=== PATIENT | female | born 2000 | race Caucasian/White ===

== ENCOUNTER → 2023-02-25 | Outpatient (CLI) | payer BC, SELFPAY ==
[2023-02-25 10:48] LABS: AST(SGOT) 16 U/L (15-37); Alanine Aminotransfer ALT/SGPT 31 U/L (13-56); Cholesterol 150 mg/dL (200); High Density Lipoprotein 52 mg/dL; Triglycerides 132 mg/dL; Very Low Density Lipoprotein 26 mg/dL (5-40)
== END | disposition home or self-care (01) ==
PROVIDERS: PCP Student in an Organized Health Care Education/Training Program; Referring Provider Physician Assistant Medical; Visit Provider Physician Assistant Medical
DX: L70.0 Acne vulgaris (principal); Z79.899 Other long term (current) drug therapy; E28.2 Polycystic ovarian syndrome; N80.9 Endometriosis, unspecified
CPT/HCPCS: 36415; 80061; 84450; 84460

== ENCOUNTER 2023-08-09 10:00 | Day surgery (SDC) | payer BC, SELFPAY ==
[2023-08-09 10:25] LABS: Internal QC Validated? YES +Cl - CLEAR BKGD; Pregnancy, Urine Negative Negative
--- NOTE | 2023-08-09 10:25 | HP.PCM_ITS ---
History and Physical Date of Admission: 08/09/23 ROCK LUKE, is a 23 F who presents to the office today for a follow up. PMH anxiety/depression; endometriosis; enlarged thyroid.? PSH: appendectomy, adenoidectomy, ovarian cyst removal. FH: IBS ? PCP OV 3.11.09 with urgent loose stools with blood and some mucus, abdominal pain and rectal pressure. History of bleeding hemorrhoids which resolve with hemorrhoidal wipes. Current symptoms have been persistent for 6 weeks. ?Biochemical?AST-ALT, triglycerides, lipids WNL.? States the symptoms that she was having in December decreased but still flare back up. States that she will have random bouts of diarrhea with blood, abdominal pain and bloating about every 3 weeks that lasts for a few days. States that she varies between diarrhea and constipation. States that she has very frequent nausea but this is normal for her. States that she has a history of IBS but has never had symptoms like this before. Denies any history of EGD or Colonoscopy. Denies any recent imaging. ROS Const Constitutional: No fatigue, fever(s), frequent falls, headache(s) or weight change ENT ENT: No headache(s) or difficulty swallowing Cardio Cardiology: No leg pain with exertion Gastro GI: Positive for abdominal pain, bloating, diarrhea and Blood in stool; No change in bowel habits, constipation, heartburn, difficulty swallowing, Vomiting blood/hematemesis, nausea/dyspepsia or vomiting Musc Musculoskeletal: No abnormal gait, joint pain, back pain, joint swelling, muscle cramps, muscle weakness, numbness, stiffness, tingling, Arthritis, sciatica, leg pain at night or leg pain with exertion Skin Skin: No dry skin, lesions, itchy eyes or rash Neuro Neurology: No abnormal gait, dizziness, frequent falls, headache(s), numbness, tingling, tremor(s), Increased tone in limbs, paralysis or seizures Psych Psychiatric: No anxiety, No depression, No paranoia, No Behavioral Problems, No Compulsive Behavior, No hyperactivity, No inattentiveness, No obsessions/compulsions, No Temper Tantrums and No suicidal ideation Endo Endocrine: No fatigue or weight change Aller/Imm Allergy/Immunologic: No itchy eyes Giovanni/Lymp Hematologic/Lymphatic: No easy bleeding or easy bruising Exam Const General: cooperative and comfortable Nutritional Appearance: average body habitus and well nourished [facility] Head: normal to inspection Ears: hearing grossly normal bilaterally Nose: external nose normal Face and sinus: normal facial exam Mouth: oral mucosae normal Throat: posterior oropharynx normal Eyes General: appearance normal, both eyes and all related structures Neck Neck: normal visual inspection Chest Chest palpation & inspection: normal inspection of the chest and normal palpation of entire chest wall Resp Effort & Inspection: normal respiratory effort Auscultation: Bilateral: Clear to Auscultation Cardio Palpation: normal PMI Rate: regular rate Rhythm: regular rhythm GI Inspection: normal to inspection Auscultation: normal bowel sounds Percussion: normal to percussion Palpation: no hepatosplenomegaly Skin General: no rashes or lesions noted Neuro General: patient alert Extrem General: normal to inspection Psych Affect: normal affect Quality Reporting Tobacco Screening ([facility] 138) Smoking Status: Never smoker Assessment and Plan Assessment and Plan (1) Change in bowel habits: Status: Acute (2) Abdominal pain: Status: Acute Plan 23-year-old with intermittent epigastric pain that is nonradiating. She is not sure if it is associated with foods. It is associated with menstrual cycle. Her weight has been stable. She does not have any fever, rash or B symptoms. She does see some blood in her stool after having an episode of cramping and bloating.. The differential diagnosis does include celiac disease, inflammatory bowel disease, microscopic colitis, collagenous colitis, peptic ulcer disease, H. pylori associated gastritis. She will undergo upper and lower endoscopy and also biochemical testing and stool testing. She was explained alternatives, risk, benefits including understanding bleeding, infection, sepsis, perforation, need for surgery . Shortness of 20. I have examined the patient and the H&P has been reviewed. There are no clinical changes since date of exam.
[2023-08-09 10:30] VITALS: BP 131/85; PULSE 85; RESP 16; TEMP 36.4; O2SAT 100; BMI 30.7
[2023-08-09] MEDS: Lactated Ringers 1,000 ML 15 ML IV (10:30)
--- NOTE | 2023-08-09 11:00 | EGD_PTH ---
PATIENT: ROCK MERAZ LOC: EN U#:[id number] AGE/SX: 23 ROOM: RE08/09/[address]: Dr. Bethel Ramos DO : 2000 BED: DIS: 08/09/2023 SPEC #: [id number] RECD: 08/09/23 14:26 STATUS: GINETTE RESilke #: [id number] ESTELA: 08/09/23 11:[address]: Bethel Ramos DEPT: SURGICAL PATHOLOGY RECD BY: Daniella Garza ENTERED: 08/10/23 08:43 SP TYPE: EGD BIOPSY OT DR: Dr. Julio Beltran DO Tissues: A - Duodenum, NOS B - Gastric mucous membrane C - Esophagus, NOS D - Ileum, NOS E - COLON BIOPSY Procedures: Special Stain Group II Surgery Specimen Level IV Alcian Blue/PAS (control) HEADER OPERATION: Colonoscopy with biopsies, EGD with biopsies PRE-OP DIAGNOSIS: Change in bowel habits, abdominal pain TISSUE SUBMITTED: A - Duodenum biopsy, B - Gastric body biopsy, C - Distal esophagus biopsy, D - Terminal ileum biopsy, E - Random colon biopsy MICROSCOPIC DIAGNOSIS A. Duodenum, biopsy: No pathologic change. B. Gastric body, biopsy: Chronic gastritis. See comment. C. Distal esophagus, biopsy: Gastroesophageal junctional mucosa with chronic inflammation. Focal changes of reflux. No evidence of goblet cell metaplasia. See comment. D. Terminal ileum, biopsy: No pathologic change. E. Colon, random biopsy: No pathologic change. AM:stevie 08/11/2023 COMMENT B. The results of immunohistochemistry for Helicobacter pylori will be reported separately ([id number]). C. Alcian blue/PAS stain with matched control supports the above diagnosis. MICROSCOPIC DESCRIPTION Slides are reviewed. GROSS DESCRIPTION A - Received in fixative is one container labeled with the patient's name and designated duodenum biopsy. The specimen consists of multiple irregular fragments of light champagne soft tissue that in aggregate measure 1.0 x 0.4 x 0.1 cm. The specimen is totally submitted in one cassette. B - Received in fixative is one container labeled with the patient's name and designated gastric body biopsy. The specimen consists of one irregular fragment of light champagne soft tissue that measures 0.4 x 0.2 x 0.1 cm. The specimen is totally submitted in one cassette. C - Received in fixative is one container labeled with the patient's name and designated distal esophagus biopsy. The specimen consists of multiple irregular fragments of light champagne soft tissue that in aggregate measure 0.6 x 0.2 x 0.1 cm. The specimen is totally submitted in one cassette. D - Received in fixative is one container labeled with the patient's name and designated terminal ileum biopsy. The specimen consists of multiple irregular fragments of light champagne soft tissue that in aggregate measure 1.0 x 0.5 x 0.1 cm. The specimen is totally submitted in one cassette. E - Received in fixative is one container labeled with the patient's name and designated random colon biopsy. The specimen consists of multiple irregular fragments of light champagne soft tissue that in aggregate measure 2.5 x 0.5 x 0.1 cm. The specimen is totally submitted in one cassette. / SJ:rg 08/10/2023 TC:3 CPT: 66224 x5, 97192
--- NOTE | 2023-08-09 11:00 | IMM_PTH ---
PATIENT: ROCK MERAZ LOC: EN U#:[id number] AGE/SX: ROOM: RE08/09/[address]: Dr. Bethel Ramos DO : 2000 BED: DIS: 08/09/2023 SPEC #: [id number] RECD: 08/10/23 13:23 STATUS: GINETTE REQ #: [id number] ESTELA: 08/09/23 11:[address]: Bethel Ramos DEPT: IMMUNOHISTOCHEMISTRY RECD BY: Mariela Juan ENTERED: 08/10/23 13:23 SP TYPE: IMMUNO OTHR DR: Dr. Julio Beltran DO Tissues: B - Stomach, NOS Procedures: H Pylori (initial) PHYSICIAN & INSTITUTION [place] [id number] SPECIMEN INFORMATION: Tissue Source: B - Gastric body Clinical Info: Change in bowel habits, abdominal pain Specimen Number: [id number] CPT code: 56612 METHODOLOGY: Deparaffinized sections of prefer/formalin-fixed tissue or PAP/DQ stained slides are incubated with monoclonal/polyclonal antibodies/oligonucleotide probes. Localization is made via biotin free immunoperoxidase method. Appropriate controls are performed and reacted as expected. Results on target cell population are indicated in the following table: RESULTS: ANTIBODY / CLONE RESULT Block B H Pylori (polyclonal) negative These tests were developed and their performance characteristics determined by [facility]. They may not have been cleared or approved by the U.S. Food and Drug Administration. The FDA has determined that such clearance or approval is not necessary. The above immunohistochemical/dualISH markers are ordered and reviewed by the Pathologist. INTERPRETATION: B. Gastric body, biopsy: Negative for Helicobacter pylori organisms. AM:stevie 08/11/2023
[2023-08-09 11:30] VITALS: BP 131/85; BP 158/65; PULSE 97; RESP 19; TEMP 36.2; O2SAT 96
--- NOTE | 2023-08-09 11:34 | OP.EGD_ITS ---
Patient Name: Gómez Hardwick Procedure Date: 08/09/2023 11:00 AM Date of : 2000 Age: 23 Procedure: Upper GI endoscopy Indications: Epigastric abdominal pain, Functional Dyspepsia Providers: Bethel Ramos DO Referring MD: Julio Beltran Do Medicines: Monitored Anesthesia Care Patient Profile: This is a 23 year old female. Refer to note in patient chart for documentation of history and physical. Patient has symptoms of chronic abdominal cramping and chronic epigastric abdominal pain. Complications: No immediate complications. Procedure: Pre-Anesthesia Assessment: - Prior to the procedure, a History and Physical was performed, and patient medications and allergies were reviewed. The patient is competent. The risks and benefits of the procedure and the sedation options and risks were discussed with the patient. All questions were answered and informed consent was obtained. Patient identification and proposed procedure were verified by the physician in the pre-procedure area. Mental Status Examination: alert and oriented. Airway Examination: normal oropharyngeal airway and neck mobility. Respiratory Examination: clear to auscultation. CV Examination: normal. Prophylactic Antibiotics: The patient does not require prophylactic antibiotics. Prior Anticoagulants: The patient has taken no anticoagulant or antiplatelet agents. ASA Grade Assessment: II - A patient with mild systemic disease. After reviewing the risks and benefits, the patient was deemed in satisfactory condition to undergo the procedure. The anesthesia plan was to use monitored anesthesia care (MAC). Immediately prior to administration of medications, the patient was re-assessed for adequacy to receive sedatives. The heart rate, respiratory rate, oxygen saturations, blood pressure, adequacy of pulmonary ventilation, and response to care were monitored throughout the procedure. The physical status of the patient was re-assessed after the procedure. After obtaining informed consent, the endoscope was passed under direct vision. Throughout the procedure, the patient's blood pressure, pulse, and oxygen saturations were monitored continuously. The Colonoscope was introduced through the mouth, and advanced to the second part of duodenum. The upper GI endoscopy was accomplished without difficulty. The patient tolerated the procedure well. Scope In: 11:08:34 AM Scope Out: 11:13:11 AM Total Procedure Duration Time 0 hours 4 minutes 37 seconds Findings: LA Grade A (one or more mucosal breaks less than 5 mm, not extending between tops of 2 mucosal folds) esophagitis with no bleeding was found 37 to 38 cm from the incisors. Biopsies were taken with a cold forceps for histology. Verification of patient identification for the specimen was done. Estimated blood loss was minimal. Patchy mildly erythematous mucosa without bleeding was found in the gastric body. Biopsies were taken with a cold forceps for histology. Verification of patient identification for the specimen was done. Estimated blood loss was minimal. No gross lesions were noted in the duodenal bulb, in the first portion of the duodenum and in the second portion of the duodenum. Biopsies were taken with a cold forceps for histology. Verification of patient identification for the specimen was done. Estimated blood loss was minimal. Impression: - LA Grade A reflux esophagitis with no bleeding. Biopsied. - Erythematous mucosa in the gastric body. Biopsied. - No gross lesions in the duodenal bulb, in the first portion of the duodenum and in the second portion of the duodenum. Biopsied. Recommendation: - Discharge patient to home. - Resume previous diet. - Continue present medications. - Await pathology results. Procedure Code(s): --- Professional --- 03490, Esophagogastroduodenoscopy, flexible, transoral; with biopsy, single or multiple CPT copyright 2021 [employer]. All rights reserved. The codes documented in this report are preliminary and upon professor of kinesiology review may be revised to meet current compliance requirements. Bethel Ramos DO 08/09/2023 11:33:32 AM This report has been signed electronically. Number of Addenda: 0 Note Initiated On: 08/09/2023 11:00 AM
--- NOTE | 2023-08-09 11:34 | OP.CCLET_ITS ---
08/09/2023 Julio Beltran Do Re : Upper GI endoscopy procedure for Gómez Hardwick Dear Devin This procedure was performed on Wednesday, August 09, 2023. My impressions and recommendations are as follows: Impressions : - LA Grade A reflux esophagitis with no bleeding. Biopsied. - Erythematous mucosa in the gastric body. Biopsied. - No gross lesions in the duodenal bulb, in the first portion of the duodenum and in the second portion of the duodenum. Biopsied. Recommendations : - Discharge patient to home. - Resume previous diet. - Continue present medications. - Await pathology results. My findings are described in the full procedure note, which is enclosed. If I can be of further assistance, please feel free to contact me at . Sincerely, Bethel Ramos DO 08/09/2023 11:33:32 AM This report has been signed electronically.
[2023-08-09 11:35] VITALS: BP 124/100; BP 131/85; PULSE 103; RESP 16; O2SAT 96
--- NOTE | 2023-08-09 11:37 | OP.COLON_ITS ---
Patient Name: Gómez Hardwick Procedure Date: 08/09/2023 11:13 AM Date of : 2000 Age: 23 Procedure: Colonoscopy Indications: Clinically significant diarrhea of unexplained origin Providers: Bethel Ramos DO Referring MD: Julio Beltran Do Medicines: Monitored Anesthesia Care Patient Profile: This is a 23 year old female. Refer to note in patient chart for documentation of history and physical. Patient has symptoms of chronic abdominal cramping and chronic epigastric abdominal pain. Last Colonoscopy: none. The patient's first colonoscopy is today. Complications: No immediate complications. Procedure: Pre-Anesthesia Assessment: - Prior to the procedure, a History and Physical was performed, and patient medications and allergies were reviewed. The patient is competent. The risks and benefits of the procedure and the sedation options and risks were discussed with the patient. All questions were answered and informed consent was obtained. Patient identification and proposed procedure were verified by the physician in the pre-procedure area. Mental Status Examination: alert and oriented. Airway Examination: normal oropharyngeal airway and neck mobility. Respiratory Examination: clear to auscultation. CV Examination: normal. Prophylactic Antibiotics: The patient does not require prophylactic antibiotics. Prior Anticoagulants: The patient has taken no anticoagulant or antiplatelet agents. ASA Grade Assessment: II - A patient with mild systemic disease. After reviewing the risks and benefits, the patient was deemed in satisfactory condition to undergo the procedure. The anesthesia plan was to use monitored anesthesia care (MAC). Immediately prior to administration of medications, the patient was re-assessed for adequacy to receive sedatives. The heart rate, respiratory rate, oxygen saturations, blood pressure, adequacy of pulmonary ventilation, and response to care were monitored throughout the procedure. The physical status of the patient was re-assessed after the procedure. After I obtained informed consent, the scope was passed under direct vision. Throughout the procedure, the patient's blood pressure, pulse, and oxygen saturations were monitored continuously. The Colonoscope was introduced through the anus and advanced to the terminal ileum. The colonoscopy was performed without difficulty. The patient tolerated the procedure well. The quality of the bowel preparation was adequate. The terminal ileum, ileocecal valve, appendiceal orifice, and rectum were photographed. Scope In: 11:15:20 AM Scope Withdrawal Time 0 hours 8 minutes 12 seconds Scope Out: 11:27:00 AM Total Procedure Duration Time 0 hours 11 minutes 40 seconds Findings: The perianal and digital rectal examinations were normal. The recto-sigmoid colon was moderately tortuous. An area of mildly congested mucosa was found in the ascending colon. Biopsies for histology were taken with a cold forceps from the entire colon for evaluation of microscopic colitis. Verification of patient identification for the specimen was done. Estimated blood loss was minimal. The terminal ileum appeared normal. Biopsies were taken with a cold forceps for histology. Verification of patient identification for the specimen was done. Estimated blood loss was minimal. Impression: - Tortuous colon. - Congested mucosa in the ascending colon. Biopsied. - The examined portion of the ileum was normal. Biopsied. Recommendation: - Discharge patient to home. - Resume previous diet. - Continue present medications. - Await pathology results. - Repeat colonoscopy (date not yet determined) for surveillance based on pathology results. Procedure Code(s): --- Professional --- 41960, Colonoscopy, flexible; with biopsy, single or multiple CPT copyright 2021 [employer] [place] [employer]. All rights reserved. The codes documented in this report are preliminary and upon icd 9 coder review may be revised to meet current compliance requirements. Bethel Ramos DO 08/09/2023 11:37:17 AM This report has been signed electronically. Number of Addenda: 0 Note Initiated On: 08/09/2023 11:13 AM
--- NOTE | 2023-08-09 11:37 | OP.CCLET_ITS ---
08/09/2023 Julio Beltran Do Re : Colonoscopy procedure for Gómez Hardwick Dear Devin This procedure was performed on Wednesday, August 09, 2023. My impressions and recommendations are as follows: Impressions : - Tortuous colon. - Congested mucosa in the ascending colon. Biopsied. - The examined portion of the ileum was normal. Biopsied. Recommendations : - Discharge patient to home. - Resume previous diet. - Continue present medications. - Await pathology results. - Repeat colonoscopy (date not yet determined) for surveillance based on pathology results. My findings are described in the full procedure note, which is enclosed. If I can be of further assistance, please feel free to contact me at . Sincerely, Bethel Ramos DO 08/09/2023 11:37:17 AM This report has been signed electronically.
[2023-08-09 11:40] VITALS: BP 100/66; BP 131/85; PULSE 95; RESP 18; O2SAT 98
[2023-08-09 11:45] VITALS: BP 103/64; BP 131/85; PULSE 95; RESP 18; TEMP 36.7; O2SAT 98
[2023-08-09 12:00] VITALS: BP 131/85
== END 2023-08-09 12:09 | disposition home or self-care (01) ==
LOC: EN 10:03 → AC 10:03
PROVIDERS: Anesthesiology; PCP Student in an Organized Health Care Education/Training Program; Referring Provider Student in an Organized Health Care Education/Training Program; Visit Provider Internal Medicine Gastroenterology
PROC: 0DJD8ZZ Inspection of Lower Intestinal Tract, Via Natural or Artificial Opening Endoscopic (ICD-10-PCS; CPT 45378; principal; 2023-08-09 10:55)
DX: K29.50 Unspecified chronic gastritis without bleeding (principal); R19.7 Diarrhea, unspecified; K21.00 Gastro-esophageal reflux disease with esophagitis, without bleeding; K63.89 Other specified diseases of intestine; K30 Functional dyspepsia
CPT/HCPCS: 45380; 43239; 81025; 88305; 88313; 88342; J7120; J2405

== ENCOUNTER → 2023-09-28 | Outpatient (CLI) | payer BC, SELFPAY ==
[2023-09-28 13:00] LABS: Absolute Lymphocyte Count 2.69 X10^3/uL (0.83-4.51); Absolute Neutrophil Count 3.7 X10^3/uL (2.0-7.7); Basophil# 0.03 X10^3/uL; Basophil% 0.4 % (0-1); Eosinophil# 0.06 X10^3/uL; Eosinophils% 0.9 % (0-5); Hematocrit 44.5 % (37-47); Hemoglobin 14.8 g/dL (12.0-15.0); Lymphocyte # 2.69 X10^3/ul (0.83-4.51); Lymphocyte % 38.9 % (19-41); Mean Corp Hgb Conc 33.3 g/dL (32-36); Mean Corpuscular Hgb 29.5 pg (27.0-32.0); Mean Corpuscular Volume 88.8 fL (81-99); Monocyte# 0.42 X10^3/uL; Monocyte% 6.1 % (0-10); NRBC Flagged by Analyzer 0 % (0-5); Neutrophil % 53.4 % (47-70); Platelet Count 272 K/mm3 (150-450); RET-HE 35.2 pg (30-35); Red Blood Count 5.01 M/mm3 (4.2-5.4); Reticulocyte Count 1.41 % (0.5-1.5); White Blood Count 6.9 K/mm3 (4.4-11.0)
[2023-09-28 13:24] LABS: Erythrocyte Sedimentation Rate 2 mm/hr (0-30)
[2023-09-28 13:27] LABS: Amylase 61 U/L (25-115); CRP < 2.90 mg/L (0.0-3.0); Ferritin 40 ng/mL (8-252); Iron 100 ug/dL (50-170); Iron Binding Capacity,Total 359 ug/dL (250-450); LDH 188 U/L (84-246); Lipase 55 U/L (13-75)
[2023-10-02 06:09] LABS: Alpha-1-Globulins 0.2 g/dL (0.0-0.4); Alpha-2-Globulins 0.7 g/dL (0.4-1.0); CMV Acute Antibody IgM < 30.0 AU/mL (0.0-29.9); Ceruloplasmin 27.2 mg/dL (19.0-39.0); Cytoplasmic Ab (C-ANCA) <1:20 titer (Neg:<1:20); EBV Acute VCA IgM < 36.0 U/mL (0.0-35.9); EBV-VCA IgG > 600.0 U/mL (0.0-17.9); Endomysial Antibody IgA Negative (Negative); Gamma Globulin 1.5 g/dL (0.4-1.8); Immunoglobulin A 213 mg/dL (87-352); Immunoglobulin E 43 IU/mL (6-495); Immunoglobulin G 1578 mg/dL (586-1602); Immunoglobulin M 70 mg/dL (26-217); PROEL- TOTAL PROTEIN 7.4 g/dL (6.0-8.5); Perinuclear Ab (P-ANCA) <1:20 titer (Neg:<1:20); QNTFERON TB Mitogen Value > 10.00 IU/mL (.); QNTFERON TB Nil Value 0 IU/mL (.); QNTFERON TB1+ Ag Value 0.02 IU/mL (.); QNTFERON TB2+ Ag Value 0.06 IU/mL (.); QNTIFERON TB Positive Criteria Negative (Negative); t-Transglutaminase IgA <2 U/mL (0-3)
[2023-10-02 13:08] LABS: Anti-Centromere B Ab <0.2 AI (0.0-0.9); Anti-Chromatin <0.2 AI (0.0-0.9); Anti-Jo <0.2 AI (0.0-0.9); Anti-Scleroderma-70 AB <0.2 AI (0.0-0.9); Anti-dsDNA Ab 10 IU/mL (0-9); Clam <0.10 kU/L (Class 0); Codfish <0.10 kU/L (Class 0); Corn <0.10 kU/L (Class 0); Egg, White <0.10 kU/L (Class 0); Milk (Cow) <0.10 kU/L (Class 0); Peanut <0.10 kU/L (Class 0); RNP Ab <0.2 AI (0.0-0.9); SCALLOP <0.10 kU/L (Class 0); SESAME SEED <0.10 kU/L (Class 0); SJOGREN'S Anti-SS-A test 1.2 AI (0.0-0.9); SJOGREN'S Anti-SS-B test < 0.2 AI (0.0-0.9); Shrimp <0.10 kU/L (Class 0); Smith Ab <0.2 AI (0.0-0.9); Soybean <0.10 kU/L (Class 0); Walnut, (Food) <0.10 kU/L (Class 0); Wheat <0.10 kU/L (Class 0)
== END | disposition home or self-care (01) ==
LOC: LAB 12:27
PROVIDERS: PCP Student in an Organized Health Care Education/Training Program; Referring Provider Internal Medicine Gastroenterology; Visit Provider Internal Medicine Gastroenterology
DX: R19.4 Change in bowel habit (principal); R10.9 Unspecified abdominal pain
CPT/HCPCS: 36415; 82150; 82390; 82728; 82784; 82785; 83516; 83540; 83550; 83615; 83690; 84165; 85025; 85045; 85652; 86003; 86140; 86225; 86235; 86255; 86256; 86334; 86480; 86645; 86664; 86665

== ENCOUNTER 2024-05-28 16:01 | Outpatient (CLI) | payer BC, SELFPAY ==
[2024-05-28] VITALS (8 sets, daily range): BP systolic 116–123; BP diastolic 76–88; PULSE 71–97; RESP 18; TEMP 36.2; O2SAT 99; BMI 38.0
[2024-05-28 16:26] LABS: Hematocrit 36.6 % (37-47); Hemoglobin 12.1 g/dL (12.0-15.0); Mean Corp Hgb Conc 33.1 g/dL (32-36); Mean Corpuscular Hgb 28.2 pg (27.0-32.0); Mean Corpuscular Volume 85.3 fL (81-99); Mean Platelet Vol. 10.5 fl (6.2-12.0); Platelet Count 264 K/mm3 (150-450); RBC Distribution Width CV 13.1 % (11.6-14.6); RBC Distribution Width SD 40.1 fl (35.1-43.9); Red Blood Count 4.29 M/mm3 (4.2-5.4); White Blood Count 8.7 K/mm3 (4.4-11.0)
[2024-05-28 16:39] LABS: Protein:Creat Ratio 239 mg/g CRE (0-200)
[2024-05-28 16:40] LABS: AST(SGOT) 18 U/L (15-37); Alanine Aminotransfer ALT/SGPT 16 U/L (13-56); Creatinine, Serum 0.57 mg/dL (0.55-1.02); EST Glomerular Filtration Rate 139 mL/min (>60); Est Glom Filt Rate - Afr Amer 168 mL/min (>60); Estimated Creatinine Clearance 194.72 ml/min; Uric Acid 4.2 mg/dL (2.6-6.0)
[2024-05-28] MEDS: DiphenhydrAMINE 25 MG Capsule PO (17:09)
[2024-05-28] MEDS: Acetaminophen 500 MG Tablet 1000 MG PO (17:09)
[2024-05-28] MEDS: Metoclopramide 10 MG Tablet PO (17:09)
--- NOTE | 2024-05-28 21:06 | OB.TRI.NOTE ---
HPI - General General Date of Service: 05/28/24 Chief Complaint: headache HPI Narrative ROCK LUKE, is a 24 F who presents with a headache and concern for pre E. Maternal Data Information Final MOOKIE: 06/26/24 Gestational age: 35 weeks [facility] Medical History (Updated 05/28/24 @ 21:[address] Renetta Farmer MD) Wears glasses Wears contact lenses Anxiety Injury of head and neck Non-smoker Enlarged thyroid Scoliosis of lumbar spine Recurrent headache Endometriosis, pelvic peritoneum Depression Cystic acne vulgaris Chronic anxiety Abdominal pain Change in bowel habits Hemorrhage of anus and rectum Home Medications ?Medication ?Instructions ?Recorded ?Last Taken ?Type sertraline 50 mg tablet 50 mg PO DAILY anxiety 02/09/23 05/27/24 22:00 History multivitamin (Daily Multi-Vitamin 1 tab PO DAILY 08/03/23 05/27/24 22:00 History tablet) famotidine 40 mg tablet 20 mg PO DAILY heartburn 05/28/24 05/27/24 22:00 History magnesium 200 mg tablet 400 mg PO DAILY 05/28/24 05/27/24 22:00 History ursodiol 300 mg capsule 300 mg PO BID 05/28/24 05/28/24 09:00 History Allergy/AdvReac Type Severity Reaction Status Date / Time No Known Allergies Allergy Verified 05/28/24 16:12 Family History (Updated 02/09/23 @ 10:47 by Elisha Soriano) Mother IBS (irritable bowel syndrome) PCOS (polycystic ovarian syndrome) Sister IBS (irritable bowel syndrome) Surgical History History of ovarian cystectomy History of adenoidectomy History of appendectomy Social History (Updated 02/09/23 @ 10:47 by Elisha Soriano) Smoking Status: Never smoker alcohol intake: current alcohol intake frequency: a few times a week Alcohol type: wine NST FHR Rate Baby A Baseline: 130 Variability:: Moderate Accelerations:: 15 x 15 Decelerations:: None NST Reactive:: Yes FHR Category:: Category I Uterine Activity:: quiet Assessment & Plan (1) Headache in : QUALIFIERS: Trimester: third trimester Qualified Code(s): O26.893 - Other specified related conditions, third trimester; R51.9 - Headache, unspecified (2) 35 weeks gestation of : PLAN: Plan Headache resolved with reglan and benadryl. Pre E labs normal
== END 2024-05-28 17:56 | disposition home or self-care (01) ==
LOC: WPOUT 16:03 → WP 16:04
PROVIDERS: PCP Student in an Organized Health Care Education/Training Program; Referring Provider Obstetrics & Gynecology; Visit Provider Obstetrics & Gynecology
DX: O26.893 Other specified pregnancy related conditions, third trimester (principal); O99.343 Other mental disorders complicating pregnancy, third trimester; F41.9 Anxiety disorder, unspecified; Z3A.35 35 weeks gestation of pregnancy; F32.A Depression, unspecified; Z79.899 Other long term (current) drug therapy; R51.9 Headache, unspecified
CPT/HCPCS: 36415; 59025; 59050; 82565; 82570; 84156; 84450; 84460; 84550; 85027; 99221; G0378

== ENCOUNTER 2024-06-07 19:26 | Inpatient (IN) | payer BC, SELFPAY ==
[2024-06-07] VITALS (7 sets, daily range): BP systolic 128–145; BP diastolic 78–85; PULSE 65–93; RESP 16; TEMP 36.2–36.5; O2SAT 99; BMI 39.2
[2024-06-07] MEDS: Lactated Ringers 1,000 ML 50 ML IV (19:50)
[2024-06-07] MEDS: 0.9% Normal Saline Single 100 ML IV.SOLN. INTRA-UTER (20:10)
--- NOTE | 2024-06-07 20:17 | HP.PCM.OB_ITS ---
HPI - General General Date of Admission: 06/07/24 HPI Narrative ROCK MERAZ, is a 24 F @ 37 weeks who presents for IOL due to Cholestasis [facility] Medical History (Updated 06/07/24 @ 20:[address] Joanna Beckett MD) Wears glasses Wears contact lenses Anxiety Injury of head and neck Non-smoker Enlarged thyroid Scoliosis of lumbar spine Recurrent headache Endometriosis, pelvic peritoneum Depression Cystic acne vulgaris Chronic anxiety Abdominal pain Change in bowel habits Hemorrhage of anus and rectum Home Medications ?Medication ?Instructions ?Recorded ?Last Taken ?Type sertraline 50 mg tablet 50 mg PO DAILY anxiety 02/09/23 05/27/24 22:00 History multivitamin (Daily Multi-Vitamin 1 tab PO DAILY 08/03/23 05/27/24 22:00 History tablet) famotidine 40 mg tablet 20 mg PO DAILY heartburn 05/28/24 05/27/24 22:00 History magnesium 200 mg tablet 400 mg PO DAILY 05/28/24 05/27/24 22:00 History ursodiol 300 mg capsule 300 mg PO BID 05/28/24 05/28/24 09:00 History Allergy/AdvReac Type Severity Reaction Status Date / Time No Known Allergies Allergy Verified 06/07/24 20:15 Family History (Updated 02/09/23 @ 10:47 by Elisha Soriano) Mother IBS (irritable bowel syndrome) PCOS (polycystic ovarian syndrome) Sister IBS (irritable bowel syndrome) Surgical History History of ovarian cystectomy History of adenoidectomy History of appendectomy Social History (Updated 02/09/23 @ 10:47 by Elisha Soriano) Smoking Status: Never smoker alcohol intake: current alcohol intake frequency: a few times a week Alcohol type: wine NST FHR Rate Baby A Baseline: 140 Variability:: Moderate Accelerations:: 15 x 15 Decelerations:: None NST Reactive:: Yes FHR Category:: Category I Uterine Activity:: no ctx Vital Signs Vital Signs Vital Signs: 06/07/24 19:36 06/07/24 19:36 06/07/24 19:37 Temperature Temperature Source Pulse Rate 93 Respiratory Rate Blood Pressure 128/78 H BP Systolic 128 BP Diastolic 78 Pulse Ox 99 06/07/24 19:37 06/07/24 19:37 06/07/24 19:37 Temperature Temperature Source Temporal Pulse Rate 88 Respiratory Rate 16 Blood Pressure BP Systolic BP Diastolic Pulse Ox 06/07/24 19:37 Temperature 97.6 F L Temperature Source Pulse Rate Respiratory Rate Blood Pressure BP Systolic BP Diastolic Pulse Ox Physical Exam Narrative prior to my vaginal exam small amount of blood noted- pt reports felt small leaking after exam from RN- no other fluid noted on pad- will continue to monitor for LOF VE: 10/22/49/-3, transcervical merlos placed without difficulty Const alert and oriented x3 General Appearance: cooperative HEENT normocephalic GI GI Narrative: Gravid, non tender to palpation. OB / External & Speculum: external exam normal Extremity normal to inspection Skin no rashes or lesions noted Neuro oriented x3 and CN's II-XII intact bilaterally Psych Appearance: grossly normal Labs Labs Labs: Antibody Screen Pending Hct 34.8 % (37-47) L Hgb 11.5 g/dL (12.0-15.0) L Syphilis Total Ab Pending Assessment & Plan (1) Cholestasis during in third trimester: (2) 37 weeks gestation of : (3) Obesity affecting in third trimester: QUALIFIERS: Obesity type affecting : other obesity Qualified Code(s): O99.213 - Obesity complicating , third trimester; E66.8 - Other obesity PLAN: Plan Admit to L&D [facility] FHR/TOCO Epidural if requested for pain Monitor VS Anticipate transcervical merlos/cytotec
[2024-06-07 20:20] LABS: Absolute Lymphocyte Count 2.13 X10^3/uL (0.83-4.51); Basophil# 0.04 X10^3/uL; Basophil% 0.4 % (0-1); Eosinophil# 0.11 X10^3/uL; Eosinophils% 1.1 % (0-5); Hematocrit 34.8 % (37-47); Hemoglobin 11.5 g/dL (12.0-15.0); Lymphocyte # 2.13 X10^3/ul (0.83-4.51); Mean Corpuscular Hgb 28.3 pg (27.0-32.0); Mean Corpuscular Volume 85.7 fL (81-99); Mean Platelet Vol. 10.8 fl (6.2-12.0); Monocyte# 0.83 X10^3/uL; Monocyte% 8.2 % (0-10); NRBC Flagged by Analyzer 0 % (0-5); Neutrophil # 6.97 X10^3/uL (2.7-7.7); Neutrophil % 68.8 % (47-70); Platelet Count 261 K/mm3 (150-450); RBC Distribution Width SD 40.1 fl (35.1-43.9); Red Blood Count 4.06 M/mm3 (4.2-5.4); White Blood Count 10.1 K/mm3 (4.4-11.0)
[2024-06-07] MEDS: miSOPROStol 25 MCG TABLET PO (20:40)
[2024-06-07 20:52] LABS: Syphilis Antibodies Non-reactive
[2024-06-08] VITALS (55 sets, daily range): BP systolic 75–159; BP diastolic 40–95; PULSE 51–130; RESP 15–20; TEMP 36.1–37; O2SAT 81–100
[2024-06-08] MEDS: Oxytocin 15 Units/NS 250ml 15 UNITS/250 ML IV.SOLN 2 UNITS IV (00:49)
[2024-06-08] MEDS: Mag /Aluminum/Simeth WCH UDC 30 ML ORAL.SUSP PO (00:51)
--- NOTE | 2024-06-08 07:54 | PCM.PN.CNM ---
Subjective Subjective Patient seen at bedside. Starting to feel contractions. Rating pain 4-5/10. Planning on epidural for pain control. Objective Data Objective Data Vital Signs: Vital Signs Temp Pulse Resp BP Pulse Ox 97.6 F L 71 16 117/70 98 06/08/24 07:14 06/08/24 07:14 06/08/24 07:14 06/08/24 07:14 06/08/24 07:13 Weight: 250 lb 3.2 oz Body Mass Index (BMI) 39.2 Intake & Output: Intake and Output for Last 24 Hours 06/06/24 06/07/24 06/08/24 23:59 23:59 23:59 Intake Total 49.53 / 49.53 Output Total 500 / 500 Balance -450.47 / -450.47 Lab / Micro Data 06/07/24 19:50 Labs: Laboratory Results - last 24 hr 06/07/24 19:50: WBC 10.1, RBC 4.06 L, Hgb 11.5 L, Hct 34.8 L, MCV 85.7, MCH 28.3, MCHC 33.0, RDW Std Deviation 40.1, RDW Coeff of Leona 13.0, Plt Count 261, MPV 10.8, Immature Gran % (Auto) 0.500, Neut % (Auto) 68.8, Lymph % (Auto) 21.0, [place] % (Auto) 8.2, Eos % (Auto) 1.1, Baso % (Auto) 0.4, Absolute Neuts (auto) 7.0, Absolute Lymphs (auto) 2.13, Nucleated RBC % 0, Syphilis Total Ab Non-reactive, Blood Type O POSITIVE, Antibody Screen NEGATIVE Physical Exam Const alert and no apparent distress General Appearance: cooperative and comfortable Exam Limitations: no limitations HEENT normocephalic Eyes General Eye: normal appearance of both eyes Neck full ROM General: normal visual inspection Chest Chest: symmetrical chest wall rise Resp normal respiratory effort and normal air movement Effort and Inspection: symmetric chest movement Auscultation: clear to auscultation bilaterally Cardio regular rate and regular rhythm GI normal to inspection, nondistended, normoactive bowel sounds Back/Spine normal ROM Extremity full ROM and no calf tenderness General Extremity: normal exam except as noted Skin no rashes or lesions noted Neuro oriented x3 Speech: speech normal Psych mental status grossly normal Thought Process: normal thought process Assessment & Plan (1) Obesity affecting in third trimester: QUALIFIERS: Obesity type affecting : other obesity Qualified Code(s): O99.213 - Obesity complicating , third trimester; E66.8 - Other obesity (2) 37 weeks gestation of : (3) Cholestasis during in third trimester: (4) Encounter for induction of labor: PLAN: Plan NST reactive Contractions palpating mild and relaxed in between CE 3.5/70/-3 AROM for clear fluid Increase ambulation until desires epidural placement Pitocin IV at 16 mu/min. Continue to increase per orders Anticipate
[2024-06-08] MEDS: Lactated Ringers 1,000 ML 999 ML IV (08:44)
[2024-06-08] MEDS: Ondansetron 4 MG/2 ML Vial IV ×3 (09:33→19:39)
[2024-06-08] MEDS: fentaNYL-bupivacaine (epidural) 100 ML BAG EPIDURAL ×2 (10:04→15:59)
[2024-06-08] MEDS: ePHEDrine Sulfate 50 MG/ML Ampul IM (11:03)
[2024-06-08] MEDS: LACTATED RINGERS 500 ML 999 ML IV (11:07)
[2024-06-08] MEDS: Lactated Ringers 1,000 ML 200 ML IV ×2 (11:15→16:38)
--- NOTE | 2024-06-08 17:24 | PN.OBGYN_ITS ---
Subjective Subjective Patient seen at bedside. Comfortable with epidural anesthesia. Denies any pain. Objective Data Objective Data Vital Signs: Vital Signs Temp Pulse Resp BP Pulse Ox 97.6 F L 73 15 108/62 99 06/08/24 16:25 06/08/24 16:36 06/08/24 16:25 06/08/24 16:35 06/08/24 16:36 Weight: 250 lb 3.2 oz Body Mass Index (BMI) 39.2 Intake & Output: Intake and Output for Last 24 Hours 06/06/24 06/07/24 06/08/24 23:59 23:59 23:59 Intake Total 3905.69 / 3905.69 Output Total 1700 / 1700 Balance 2205.69 / 2205.69 Lab / Micro Data 06/07/24 19:50 Labs: Laboratory Results - last 24 hr 06/07/24 19:50: WBC 10.1, RBC 4.06 L, Hgb 11.5 L, Hct 34.8 L, MCV 85.7, MCH 28.3, MCHC 33.0, RDW Std Deviation 40.1, RDW Coeff of Leona 13.0, Plt Count 261, MPV 10.8, Immature Gran % (Auto) 0.500, Neut % (Auto) 68.8, Lymph % (Auto) 21.0, [place] % (Auto) 8.2, Eos % (Auto) 1.1, Baso % (Auto) 0.4, Absolute Neuts (auto) 7.0, Absolute Lymphs (auto) 2.13, Nucleated RBC % 0, Syphilis Total Ab Non- reactive, Blood Type O POSITIVE, Antibody Screen NEGATIVE Assessment & Plan (1) Encounter for induction of labor: (2) Obesity affecting in third trimester: QUALIFIERS: Obesity type affecting : other obesity Q ualified Code(s): O99.213 - Obesity complicating , third trimester; E66.8 - Other obesity (3) 37 weeks gestation of : (4) Cholestasis during in third trimester: (5) Category II heart rate tracing during labor and delivery: PLAN: Plan CE /-2- Large amount of caput palpated Cat. 2 with occasional late decelerations Pitocin off Patient repositioned to hands and knees position FHT currently reactive and cat. [address] Lan viewing patient's strip
--- NOTE | 2024-06-08 19:29 | PCM.PN.CNM ---
Subjective Subjective Called back to patient's bedside for evaluation of heart tones. Continues to be Category 2 strip with decelerations with periods or recovery and moderate variability. Pitocin turned off again at this time. Objective Data Objective Data Vital Signs: Vital Signs Temp Pulse Resp BP Pulse Ox 98.6 F 76 16 106/53 L 100 06/08/24 19:21 06/08/24 19:22 06/08/24 19:21 06/08/24 19:22 06/08/24 19:22 Weight: 250 lb 3.2 oz Body Mass Index (BMI) 39.2 Intake & Output: Intake and Output for Last 24 Hours 06/06/24 06/07/24 06/08/24 23:59 23:59 23:59 Intake Total 4016.22 / 4016.22 Output Total 2300 / 2300 Balance 1716.22 / 1716.22 Lab / Micro Data 06/07/24 19:50 Labs: Laboratory Results - last 24 hr 06/07/24 19:50: WBC 10.1, RBC 4.06 L, Hgb 11.5 L, Hct 34.8 L, MCV 85.7, MCH 28.3, MCHC 33.0, RDW Std Deviation 40.1, RDW Coeff of Leona 13.0, Plt Count 261, MPV 10.8, Immature Gran % (Auto) 0.500, Neut % (Auto) 68.8, Lymph % (Auto) 21.0, [place] % (Auto) 8.2, Eos % (Auto) 1.1, Baso % (Auto) 0.4, Absolute Neuts (auto) 7.0, Absolute Lymphs (auto) 2.13, Nucleated RBC % 0, Syphilis Total Ab Non-reactive, Blood Type O POSITIVE, Antibody Screen NEGATIVE Assessment & Plan (1) Category II heart rate tracing during labor and delivery: (2) Encounter for induction of labor: (3) Obesity affecting in third trimester: QUALIFIERS: Obesity type affecting : other obesity Qualified Code(s): O99.213 - Obesity complicating , third trimester; E66.8 - Other obesity (4) 37 weeks gestation of : (5) Cholestasis during in third trimester: PLAN: Plan FHT 's recovered after several position changes and Pitocin being stopped CE /-[address] Lan notified and viewing stip- In route to hospital Decision made for primary section due to intolerance to labor Discussed with patient and family and questions answered Support provided
[2024-06-08] MEDS: 0.9% Saline Lock 10 ML Syringe IV ×2 (19:38→22:13)
[2024-06-08] MEDS: Sodium Citrate/Citric Acid 30 ML UDC PO (19:38)
[2024-06-08] MEDS: Acetaminophen 500 MG Tablet PO (19:39)
[2024-06-08] MEDS: Cefazolin 2 GM in 0.9% Normal Saline (100mL Bag) 100 ML IV (19:52)
--- NOTE | 2024-06-08 19:53 | EX.PCM.OBRPT ---
Maternal Data Information Final MOOKIE: 06/26/24 Gestational age: 37&3 Details Operative Information Date of Procedure: 06/08/24 Pre-Operative Diagnosis: (1) Inability of fetus to tolerate labor (2) Cholestasis of Post-Operative Diagnosis: Same Indications for : Nonreassuring Status Indications Narrative: Patient was admitted for induction. The pitocin had been stopped 2 times previously for heart rate decelerations. When prolonged decelerations were noted and pitocin was stopped for the third time the decision was made to proceed with a section. Patient was counseled on R/B/A and wished to proceed. The patient was taken to the operating room where epidural anesthesia was dosed & found to be adequate. She was prepped and draped in the dorsal supine position with a leftward tilt. A Pfannenstiel skin incision was made approximately 2 cm above the symphysis pubis and carried through to the underlying fascia with the scalpel. The fascia was incised incised in the midline and extended laterally with the Bennett scissors. The rectus muscles were in the midline and the peritoneum was entered carefully and bluntly. The peritoneal incision was stretched and the bladder blade was inserted. Vesicouterine peritoneum was tented up, incised & then bladder flap created gently. The uterine incision was made in a low transverse fashion with the scalpel and extended superiorly and inferiorly with blunt dissection. The 's head was brought to the incision in the flexed position and delivered without difficulty. The head was gently guided to allow delivery of the anterior and posterior shoulders. The body then delivered with fundal pressure in the standard fashion. The 3VC cord was clamped and cut in slightly delayed fashion. The infant was handed off to the waiting application systems architect. The placenta was delivered with fundal massage and gentle traction in the standard fashion. The uterus was exteriorized and cleared of clots and debris. The uterine incision was closed with #1 Vicryl suture in a running locked fashion. Monocryl suture was used in an imbricating fashion. 2 hematomas were observed and noted to be stable. The incision was examined and was found to be hemostatic. The uterus was returned to the abdominal cavity. The hematomas were again examined and confirmed to be stable. After irrigating Kavon was placed over the uterine incision as some areas were denuded (but hemostatic). The rectus muscle was examined and any bleeding was Bovie cauterized. The fascia was closed with PDS suture in a running standard fashion. The subcutaneous tissue was examining and any bleeding was Bovie cauterized. The subcutaneous tissue was reapproximated with interrupted sutures. The skin was closed in a subcuticular fashion by the [facility]SING [facility] while I was present in the labor & delivery unit. The remainder of the procedure was performed by me with assistance. All sponge, lap, and needle counts were correct. The patient was taken to her room for recovery in a stable condition. Classification: ROLANDA Procedure Type: low transverse baby stroller rental clerk #1: Alberta Ingram Type of Anesthesia: Spinal Antibiotic Given: Ancef 2 grams IV x1 and Zithromax 500 mg/5 mL X1 Drain: Lubin to straight drain Procedure Start Time: 20:07 Procedure Stop Time: 20:58 Findings Description of Procedure: Normal maternal uterus and adnexa Presentation: Positive for Vertex Amniotic Membrane Rupture Type: Artificial Amniotic Fluid Description: Clear Placental Delivery Description: Expressed Placenta Disposition: [facility] Specimen(s) Sent to Pathology: placenta Cord Vessel Description: 3 Vessels Cord Entanglement: None A Gender: Female (1 minute): 6 (5 minute): 8 Delayed Cord Clamping: No
[2024-06-08] MEDS: Azithromycin 500 MG in Dextrose 5%-Water (250mL Bag) 250 ML 250 MG IV (21:00)
[2024-06-08] MEDS: Oxytocin 15 Units/NS 250ml 15 UNITS/250 ML IV.SOLN 83 UNITS IV (21:59)
[2024-06-08] MEDS: Ketorolac 30 MG/ML Syringe IV (22:13)
[2024-06-09] VITALS (15 sets, daily range): BP systolic 97–118; BP diastolic 58–80; PULSE 76–98; RESP 14–17; TEMP 36.4–36.7; O2SAT 98–100
[2024-06-09] MEDS: Lactated Ringers 1,000 ML 100 ML IV (01:00)
[2024-06-09] MEDS: Acetaminophen 500 MG Tablet 1000 MG PO ×4 (01:37→19:25)
[2024-06-09] MEDS: Ketorolac 30 MG/ML Syringe IV ×3 (04:48→16:38)
[2024-06-09] MEDS: 0.9% Saline Lock 10 ML Syringe IV ×3 (04:49→10:53)
[2024-06-09 05:44] LABS: Hemoglobin 10.3 g/dL (12.0-15.0); Mean Corp Hgb Conc 32.2 g/dL (32-36); Mean Platelet Vol. 10.6 fl (6.2-12.0); Platelet Count 206 K/mm3 (150-450); RBC Distribution Width CV 13.2 % (11.6-14.6); RBC Distribution Width SD 41.4 fl (35.1-43.9); Red Blood Count 3.68 M/mm3 (4.2-5.4); White Blood Count 12.1 K/mm3 (4.4-11.0)
--- NOTE | 2024-06-09 07:02 | PN.OBGYN_ITS ---
Subjective Subjective Patient seen at bedside. Denies headache, vision changes, SOB or CP. Has not ambulated on own. Baby in [facility]. Objective Data Objective Data Vital Signs: Vital Signs Temp Pulse Resp BP Pulse Ox O2 Del Method 98.1 F 87 14 102/58 L 98 Room Air 06/09/24 02:55 06/09/24 06:35 06/09/24 06:35 06/09/24 04:53 06/09/24 06:35 06/09/24 06:35 Oxygen Delivery Method Room Air Weight: 250 lb 3.2 oz Body Mass Index (BMI) 39.2 Intake & Output: Intake and Output for Last 24 Hours 06/07/24 06/08/24 06/09/24 23:59 23:59 23:59 Intake Total 5101.22 / 5101.22 250 / 250 Output Total 3650 / 3650 300 / 300 Balance 1451.22 / 1451.22 -50 / -50 Lab / Micro Data Attestation: I reviewed the patient's lab results. 06/09/24 05:35 Labs: Laboratory Results - last 24 hr 06/09/24 05:35: WBC 12.1 H, RBC 3.68 L, Hgb 10.3 L, Hct 32.0 L, MCV 87.0, MCH 28.0, MCHC 32.2, RDW Std Deviation 41.4, RDW Coeff of Leona 13.2, Plt Count 206, MPV 10.6 ROS Eyes Eyes: Denies blurry vision, spots in vision or tunnel vision ENT HEENT: Denies dizziness or headache(s) Cardiovascular Cardiovascular: Reports systems reviewed and no addt'l complaints, except as documented, dizziness and dyspnea Respiratory/Chest Respiratory/Chest: Reports systems reviewed and no addt'l complaints, except as documented Gastrointestinal Gastrointestinal: Reports systems reviewed and no addt'l complaints, except as documented Genitourinary Genitourinary: Reports systems reviewed and no addt'l complaints, except as documented Neurologic Neurologic: Denies abnormal speech, dizziness, headache(s), syncope or vertigo Psychiatric Psychiatric: Reports systems reviewed and no addt'l complaints, except as documented Physical Exam Const alert and no apparent distress General Appearance: cooperative Orientation / Consciousness: awake, oriented to person and oriented to place Exam Limitations: no limitations HEENT normocephalic Eyes General Eye: normal appearance of both eyes Neck full ROM Chest Chest: symmetrical chest wall rise Resp normal respiratory effort, normal air movement and clear to auscultation bilaterally Auscultation: clear to auscultation bilaterally Cardio regular rate and regular rhythm GI normal to inspection, nondistended, normoactive bowel sounds Uterus Palpation: uterus fundus firm Extremity full ROM and no calf tenderness Skin no rashes or lesions noted Neuro oriented x3 Psych mental status grossly normal and activity/motor behavior normal Assessment & Plan (1) Status post delivery: (2) Care and examination of lactating mother: (3) Post-operative pain: PLAN: Plan POD 1 Primary C/S Pain control Ambulate Continue pumping for baby in SCN
[2024-06-09] MEDS: Senna/Docusate Sodium 1 Tablet PO (10:06)
[2024-06-09] MEDS: Enoxaparin 40 MG/0.4 ML Syringe SC (10:07)
--- NOTE | 2024-06-09 13:44 | CASEMGMT ---
Social Work Assessment Labor and Delivery Unit Patient Address:[address] [place] [address] Phone number: [phone] Date of Referral: 06/08/24 Time of Referral:? 2325 Referred By: Dr. Lan Date of Intervention: ?06/09/24? Time of Intervention:? 1100 Reason for Referral:? mental health Sw completed chart review and acknowledges social work consult due to maternal mental health. Sw presented to bedside and introduced self to mother of baby (MOB- Gómez) and father of baby (FOB- Leo). Sw explained sw role during hospitalization and completed psychosocial assessment. History obtained from: medical records, MOB and FOB Household composition: Currently residing in the home is MOB, FOB and baby when ready for discharge. Patient's parent/guardian status:? ?MOB states that she and FOFay met through mutual friends/ neighbors, and have been together for 7 years. GARY states that JG is a good support person, no concerns reported of domestic violence or intimate partner violence. baby is first baby for both parents. Medical History: ?GARY is 24 year old female who is 1, para 0- now 1 following labor and delivery of . GARY received routine care during with [facility]. GARY presented to hospital for induction of labor on 06/08/24 at 37 weeks gestation. GARY delivered baby via emergency . Baby girl, Amrita, was born weighing 6lb 3oz with apgars of 6 and 8 at one and five minutes of life, respectfully. Baby required admission to [facility] due to respiratory issues requiring CPAP and oxygen. NO discharge identified at this time. Baby will be followed by Dr. Monzon for pediatrics. Educational Status:?Both parents graduated high school, GARY states that she has her associates degree. NO concerns with reading, learning or comprehension. Financial Status: Both parents are gainfully employed outside of the home. GARY is a nurse at [employer]. JG works as a Lieutenant at [employer]. Infant Supplies:?? Parents have obtained all necessary baby supplies, including: car seat, safe sleep space, clothes, diapers and wipes. Childcare/Caregiver(s):? MOB states that she will be the primary caregiver to baby while on maternity leave along with FOB, when both parents have returned to work they have family members who are able to provide childcare. Transportation:?? Both parents have their drivers license and reliable means of transportation, no barriers at this time. Programs/Agencies Involved: ???GARY is not connected to any community resources that assist them financially. GARY is also not connected to any mental health services or supports. Children Services/Legal Issues:??No history of children services involvement, no issues or concerns warranting referral to be made at this time. Behavioral Health Issues: ??Mental Health History: JG denies mental health history. GARY states that she was diagnosed with anxiety and depression when she was in college. MOB states that she is prescribed sertraline and she is able to tell a difference with the medication. MOB states that she has slowly been weaning down what she is prescribed, but she has not quit taking. ??? Substance Use History:?Parents deny substance use prior to and during . ? Family History:?Parents deny family history of addiction/ substance use and significant mental health diagnoses. ? Drug Screens: ??no drug screens observed in chart review. Family/Social Stressors:? No issues, concerns or stressors at this time. Support Systems: GARY states that JG is a big support to her, as well as her mom and her sister. Depression/Shaken Baby/Safe Sleeping:? Sw educated parents at length regarding signs and symptoms to be on the lookout for regarding baby blues and mood and anxiety disorders. MOB states that her mental health has been managed and she feels aware of what to lookout for. FOB states that if GARY were to struggle with her mental health that he would be able to recognize that and would know how to help and support her. Sw educated parents on shaken baby prevention and ABCs of safe sleep. Parents express understanding. ASSESSMENT:? MOB and baby admitted following labor and delivery. required admission to [facility] Care Nurs[facility] and no discharge identified at this time. Parents both talkative and interactive during completion of psychosocial assessment. MOB talkative and open regarding her mental health history, stating that she has had issues with anxiety and depression in the past, and is currently prescribed zoloft to help manage her symptoms. Parents aware of signs and symptoms of baby blues and mood and anxiety disorders to be on the look out for. Parents have obtained all necessary baby supplies and has natural supports in place. Parents receptive to sw involvement and support. PLAN:? MOB and baby to be discharged when medically ready. Resources and literature provided for parents to review, including: shaken baby prevention, ABCs of safe sleep, list of county resources that are accessible to them including mental health services and supports, mood and anxiety disorders and Help Me Grow. ?No other services requested or indicated. Peewee Romeo, TILT WALL SUPERVISOR, SCHOOL PSYCHOLOGIST
[2024-06-09] MEDS: Ibuprofen 600 MG Tablet PO (22:34)
[2024-06-10] MEDS: Acetaminophen 500 MG Tablet 1000 MG PO ×4 (01:54→20:25)
[2024-06-10 01:57] VITALS: BP 107/71; PULSE 82; RESP 16; TEMP 36.8; O2SAT 99
[2024-06-10] MEDS: Ibuprofen 600 MG Tablet PO ×4 (04:34→22:14)
[2024-06-10] MEDS: Senna/Docusate Sodium 1 Tablet PO (08:21)
[2024-06-10] MEDS: Enoxaparin 40 MG/0.4 ML Syringe SC (08:23)
[2024-06-10 08:30] VITALS: BP 115/79; PULSE 77; RESP 16; TEMP 36.7; O2SAT 100
--- NOTE | 2024-06-10 08:56 | PCM.PN.OB ---
Subjective Subjective Feels good. Denies headache, vision changes, SOB or CP. Ambulating and voiding without difficulty. Breast feeding. Baby in SCN. Objective Data Objective Data Vital Signs: Vital Signs Temp Pulse Resp BP Pulse Ox O2 Del Method 98.1 F 77 16 115/79 100 Room Air 06/10/24 08:30 06/10/24 08:30 06/10/24 08:30 06/10/24 08:30 06/10/24 08:30 06/10/24 08:30 Oxygen Delivery Method Room Air Weight: 113.489 kg Body Mass Index (BMI) 39.2 Intake & Output: Intake and Output for Last 24 Hours 06/08/24 06/09/24 06/10/24 23:59 23:59 23:59 Intake Total 5101.22 / 5101.22 1250 / 1250 Output Total 3650 / 3650 950 / 950 Balance 1451.22 / 1451.22 300 / 300 Lab / Micro Data 06/09/24 05:35 ROS Eyes Eyes: Denies blurry vision, spots in vision or tunnel vision ENT HEENT: Denies dizziness or headache(s) Cardiovascular Cardiovascular: Reports systems reviewed and no addt'l complaints, except as documented, dizziness and dyspnea Respiratory/Chest Respiratory/Chest: Reports systems reviewed and no addt'l complaints, except as documented Gastrointestinal Gastrointestinal: Reports systems reviewed and no addt'l complaints, except as documented Genitourinary Genitourinary: Reports systems reviewed and no addt'l complaints, except as documented Neurologic Neurologic: Denies abnormal speech, dizziness, headache(s), syncope or vertigo Psychiatric Psychiatric: Reports systems reviewed and no addt'l complaints, except as documented Physical Exam Const alert General Appearance: cooperative GI GI Narrative: soft, moderate distention, fundus firm, appropriately tender. Abdominal bandage clean dry and intact Assessment & Plan (1) Status post delivery: (2) Cholestasis during in third trimester: PLAN: Improved symptoms PLAN: Plan Routine care
[2024-06-10 14:35] VITALS: BP 117/86; PULSE 93; RESP 16; TEMP 37.2; O2SAT 100
[2024-06-10 20:12] VITALS: BP 114/81; PULSE 73; RESP 16; TEMP 37.1; O2SAT 100
[2024-06-11 03:30] VITALS: BP 111/92; PULSE 86; RESP 14; TEMP 36.9; O2SAT 100
[2024-06-11] MEDS: Acetaminophen 500 MG Tablet 1000 MG PO ×2 (03:35→08:52)
[2024-06-11] MEDS: Ibuprofen 600 MG Tablet PO ×2 (03:40→11:27)
[2024-06-11 08:20] VITALS: BP 121/88; PULSE 83; RESP 16; TEMP 36.9; O2SAT 100
--- NOTE | 2024-06-11 08:46 | PN.OBGYN_ITS ---
Subjective Subjective Feels good. Walking and voiding without difficulty. Minimal lochia. Breast feeding. Objective Data Objective Data Vital Signs: Vital Signs Temp Pulse Resp BP Pulse Ox O2 Del Method 98.4 F 86 14 111/92 H 100 Room Air 06/11/24 03:30 06/11/24 03:30 06/11/24 03:30 06/11/24 03:30 06/11/24 03:30 06/11/24 03:30 Oxygen Delivery Method Room Air Weight: 113.489 kg Body Mass Index (BMI) 39.2 Intake & Output: Intake and Output for Last 24 Hours 06/09/24 06/10/24 06/11/24 23:59 23:59 23:59 Intake Total 1250 / 1250 Output Total 950 / 950 Balance 300 / 300 Lab / Micro Data 06/09/24 05:35 Physical Exam Const alert General Appearance: cooperative GI GI Narrative: soft, moderate distention, fundus firm, appropriately tender. Abdominal bandage clean dry and intact Assessment & Plan (1) Status post delivery: PLAN: Plan [facility]charge to [facility] status
--- NOTE | 2024-06-11 08:46 | PCM.DC.SUM ---
Providers Date of Admission: 06/07/24 Date of Discharge: 06/11/24 Primary Care Physician: Dr. Julio Beltran DO Reason For Visit: Diagnosis Discharge Diagnosis (1) Status post delivery: Status: Acute Code(s): Z98.891 - History of uterine scar from previous surgery (2) Cholestasis during in third trimester: Status: Acute Code(s): O26.643 - Intrahepatic cholestasis of , third trimester Plan: Improved symptoms Plan Routine care Medications at Discharge Home Medications sertraline 50 mg tablet 50 mg PO DAILY anxiety 02/09/23 multivitamin (Daily Multi-Vitamin tablet) 1 tab PO DAILY 08/03/23 famotidine 40 mg tablet 20 mg PO DAILY heartburn 05/28/24 magnesium 200 mg tablet 400 mg PO DAILY 05/28/24 ursodiol 300 mg capsule 300 mg PO BID 05/28/24 Hospital Course Operations section Procedures None Summary of Care Provided Minutes Spent on Discharge: 22 Hospital Course: Induction of labor for cholestasis. intolerance to labor. Primary with difficult extraction. Baby in SCN . Breast feeding. Physical Exam Const alert General Appearance: cooperative GI GI Narrative: soft, moderate distention, fundus firm, appropriately tender. Abdominal bandage clean dry and intact Weight / BMI Weight Weight: 113.489 kg Body Mass Index (BMI) 39.2 ABG / Lab / Microbiology Data 06/09/24 05:35 D/C Instructions Discharge Diet: No restrictions May resume sexual activity in: 4-6 weeks Lifting Restrictions: 20 pounds Additional Activity Instructions: Nothing in the vagina for 4-6 weeks. You may return to work/school in 6 weeks. Call your doctor if your incision/area has: Continuous Slow Oozing, Sudden Increased Bleeding, Increased Pain/ Swelling, Increased Redness and Foul Smelling Discharge Call your doctor if you observe: Fever of 101 or Higher and Using more than 1 pad per hour (for 2 hours) Suture Line Care: Avoid Pulling/Pushing and Avoid Pinching/Bending Cleanse incision/area with: Keep Dressing Clean & Dry Please Follow Up With: Saba Vázquez MD When: Call to make an appointment for an incision check in 1-2 [phone]. You will need a post check in 6 weeks. Meaningful Use Info Meaningful Use Meaningful Use Diagnoses (Choose all that apply): None applicable Ischemic Stroke Statin Dosing Therapy Reference: STATIN DOSE THERAPY REFERENCE: * Patients > 75 years receive moderate or high dose statin therapy. * Patients 75 years or YOUNGER should receive HIGH intensity statin dose unless contraindicated. You will be required to document reason for non-treatment if statin daily dose does not meet guidelines. HIGH DOSE STATIN THERAPY DAILY Atorvastatin > than or = to 40 mg Rosuvastatin > than or = to 20 mg Amlodipine + Atorvastatin > than or = to 2.5/40 mg Ezetimibe + Simvastatin 10/80 mg Simvastatin 80mg Discharge Plan Admission Admit Date/Time: 06/07/24 19:26 Attending Provider: Joanna Beckett Primary Care Provider: Julio Beltran Discharge Orders/Prescriptions Prescriptions: No Action sertraline 50 mg tablet 50 mg PO DAILY multivitamin [Daily Multi-Vitamin] Tablet 1 tab PO DAILY famotidine 40 mg tablet 20 mg PO DAILY magnesium 200 mg tablet 400 mg PO DAILY ursodiol 300 mg capsule 300 mg PO BID Referrals / Follow Up: Julio Beltran DO [Primary Care Provider] -
[2024-06-11] MEDS: Senna/Docusate Sodium 1 Tablet PO (08:52)
[2024-06-11] MEDS: Enoxaparin 40 MG/0.4 ML Syringe SC (08:53)
== END 2024-06-11 14:10 | disposition home or self-care (01) | DRG 786 ==
LOC: WPOUT 20:41 → WP 20:41
PROVIDERS: Obstetrics & Gynecology; Admitting Provider Obstetrics & Gynecology; PCP Student in an Organized Health Care Education/Training Program; Referring Provider Obstetrics & Gynecology; Visit Provider Obstetrics & Gynecology
DX: O76 Abnormality in fetal heart rate and rhythm complicating labor and delivery (principal); K83.1 Obstruction of bile duct; O26.62 Liver and biliary tract disorders in childbirth; O99.214 Obesity complicating childbirth; Z37.0 Single live birth; Z3A.37 37 weeks gestation of pregnancy
CPT/HCPCS: 59025; 59050; 85025; 85027; 86780; 86850; 86900; 86901; 99221; J7120; A4216; G0378; J2405